=== PATIENT | female | born 1965 | race Caucasian/White ===

== ENCOUNTER 2019-07-23 13:59 | Emergency (ER) | payer OTHER, MEDICAID ==
[2019-07-23 15:28] LABS: ABSOLUTE BASOPHILS # (AUTO) 0.1 10^3/uL (0.0-0.2); ABSOLUTE EOSINOPHILS # (AUTO) 0.1 10^3/uL (0.0-0.6); ABSOLUTE LYMPHOCYTES (AUTO) 0.9 10^3/uL (0.5-4.7); ABSOLUTE MONOCYTES (AUTO) 0.9 10^3/uL (0.1-1.4); ABSOLUTE NEUT (AUTO) 6.9 10^3/uL (1.7-8.2); BASOPHILS % (AUTO) 0.6 % (0-2); EOSINOPHILS % (AUTO) 1.2 % (0-6); HEMATOCRIT 32.5 % (36.0-47.0); HEMOGLOBIN 11.2 g/dL (12.0-15.5); LYMPHOCYTES % (AUTO) 10.6 % (13-45); MEAN CORPUSCULAR HEMOGLOBIN 30.3 pg (27.0-33.4); MEAN CORPUSCULAR HGB CONC 34.4 g/dL (32.0-36.0); MEAN CORPUSCULAR VOLUME 88 fl (80-97); MONOCYTES % (AUTO) 9.9 % (3-13); PLATELET COUNT 245 10^3/uL (150-450); RED BLOOD COUNT 3.69 10^6/uL (3.72-5.28); RED CELL DISTRIBUTION WIDTH 13.9 % (11.5-14.0); SEGMENTED NEUTROPHILS % (AUTO) 77.7 % (42-78); TOTAL CELLS COUNTED % (AUTO) 100 %; WHITE BLOOD COUNT 8.9 10^3/uL (4.0-10.5)
[2019-07-23 15:37] LABS: ALBUMIN 3.5 g/dL (3.5-5.0); ALKALINE PHOSPHATASE 95 U/L (38-126); ANION GAP 7 (5-19); ASPARTATE AMINO TRANSFERASE 24 U/L (14-36); BILIRUBIN,TOTAL 0.9 mg/dL (0.2-1.3); BLOOD UREA NITROGEN 13 mg/dL (7-20); CALCIUM 8.7 mg/dL (8.4-10.2); CARBON DIOXIDE 25 mmol/L (22-30); CHLORIDE 106 mmol/L (98-107); GLUCOSE 106 mg/dL (75-110); POTASSIUM 4.2 mmol/L (3.6-5.0); TOTAL PROTEIN 6.5 g/dL (6.3-8.2)
[2019-07-23 16:02] LABS: APPEARANCE,URINE CLEAR; BILIRUBIN,URINE NEGATIVE (NEGATIVE); COLOR,URINE AMBER; GLUCOSE, URINE NEGATIVE (NEGATIVE); KETONES,URINE NEGATIVE (NEGATIVE); LEUKOCYTE ESTERASE,URINE NEGATIVE (NEGATIVE); NITRITE,URINE NEGATIVE (NEGATIVE); PROTEIN,URINE 100 mg/dL (NEGATIVE); URINE SPECIFIC GRAVITY 1.023
--- NOTE | 2019-07-23 16:22 | RADIOLOGY REPORT (SQ) ---
EXAM DESCRIPTION: CHEST SINGLE VIEW IMAGES COMPLETED DATE/TIME: 07/23/2019 3:00 pm REASON FOR STUDY: htn COMPARISON: None. EXAM PARAMETERS: NUMBER OF VIEWS: One view. TECHNIQUE: Single frontal radiographic view of the chest acquired. RADIATION DOSE: NA LIMITATIONS: None. FINDINGS: LUNGS AND PLEURA: Lungs are hyperinflated. Spiculated masslike opacity in the left upper lobe with associated pleural thickening. No consolidation or pleural effusion. No pneumothorax. MEDIASTINUM AND HILAR STRUCTURES: No masses. Contour normal. HEART AND VASCULAR STRUCTURES: Heart normal in size. Normal vasculature. BONES: No acute findings. HARDWARE: Left infraclavicular AICD with intact lead wires. OTHER: No other significant finding. IMPRESSION: 1. Spiculated mass with associated pleural thickening in the left upper lobe adjacent to the mediasti num suspicious for neoplasm. Further evaluation with contrast-enhanced CT of the chest is recommende d. 2. Hyperinflated lungs which can be seen with obstructive lung disease. 3. Moderate cardiomegaly. TECHNICAL DOCUMENTATION: JOB ID: [id number] [employer]- All Rights Reserved Reading location - IP/workstation name: [email or web address]
--- NOTE | 2019-07-23 19:16 | RADIOLOGY REPORT (SQ) ---
EXAM DESCRIPTION: CT CHEST WITH IMAGES COMPLETED DATE/TIME: 07/23/2019 5:56 pm REASON FOR STUDY: left chest mass COMPARISON: Chest radiograph same date TECHNIQUE: CT scan of the chest performed using helical scanning technique with dynamic intravenous contrast injection. Images reviewed with lung, soft tissue and bone windows. Reconstructed coronal and sagittal MPR and MIP images reviewed. All images stored on PACS. All CT scanners at this facility use dose modulation, iterative reconstruction, and/or weight based d osing when appropriate to reduce radiation dose to as low as reasonably achievable (ALARA). [facility]: Dose Right [facility]: CareDose [facility]: Dose Right [facility]: Teradose 4D [facility]: Dekko CONTRAST TYPE AND DOSE: 79 mL Omnipaque 350- low osmolar. RENAL FUNCTION: GFR > 60. RADIATION DOSE: CT Rad equipment meets quality standard of care and radiation dose reduction techniq ues were employed. CTDIvol: 6.8 mGy. DLP: 258 mGy-cm. . LIMITATIONS: None. FINDINGS: LUNGS AND PLEURA: The trachea has normal caliber and appearance. There is bronchial wall thickening and masslike consolidation involving the left upper lobe and superior segment left lower l obe, with a somewhat linear edge along the mediastinum. There is a surgical suture at the left lung apex with associated left apical pleural thickening/scarring. Findings may represent post radiation change. Linear atelectasis and a subpleural nodularity in the right lung base with subpleural nodule measuring 1 cm (image 47). No pleural effusion or pneumothorax. Background moderate pulmonary emph ysema. HILAR AND MEDIASTINAL STRUCTURES: A prominent subcarinal lymph node measures 2.5 by 1.3 cm. No other mediastinal adenopathy. HEART AND VASCULAR STRUCTURES: There is moderate cardiomegaly with prominence of the left ventricle. No pericardial effusion. HARDWARE: Left infraclavicular pacemaker with intact lead wires. UPPER ABDOMEN: No significant findings. Limited exam. THYROID AND OTHER SOFT TISSUES: No masses. No adenopathy. BONES: No significant finding. OTHER: No other significant finding. IMPRESSION: 1. Masslike consolidation with relatively straight configuration of the lateral margin involving the left upper and superior segment of the left lower lobe. There is a surgical suture in the left lung apex with associated pleural thickening/scarring. Findings may represent postoperative and post radi ation change in the left lung. Clinical correlation for patient's history of prior lung cancer treat ment is recommended. Correlation with any previous imaging would be recommended to evaluate for stab ility. 2. Additional 1 cm noncalcified pulmonary nodule at the right lung base. This may represent rounded atelectasis or a true nodule. Correlation with any previous imaging recommended to evaluate stabilit y. If no previous imaging is available, a follow-up CT of the chest in 3 months or alternatively, a PET scan may provide additional information. 3. Background moderate pulmonary emphysema. 4. Prominent subcarinal lymph node is nonspecific and may be reactive. Correlation for stability. TECHNICAL DOCUMENTATION: JOB ID: [id number] Quality ID # [id number]: Final reports with documentation of one or more dose reduction techniques (e.g., Au tomated exposure control, adjustment of the mA and/or kV according to patient size, use of iterative reconstruction technique) 2010 [employer]- All Rights Reserved Reading location - IP/workstation name: [email or web address]
[2019-07-23] MEDS ORDERED: METHYLPREDNISOLONE INJ 125 MG/2 ML SDV IV ONE (19:52)
--- NOTE | 2019-07-23 19:57 | ER Document Report ---
Entered by SUJEY BRAUN SCRIBE 07/23/19 0737 Acting as scribe for:CELESTE SHEPPARD DO ED Respiratory Problem - General Stated Complaint: DIFFICULTY BREATHING/COUGHING/CHEST PAIN Time Seen by Provider: 07/23/19 14:29 Information source: Patient Notes: This 53 year old female patient presents to the emergency department today with shortness of breath. Patient states for the past x1 week she has had pain in her right lower teeth, right ear, and left back. Patient states she has a productive cough with sam sputum. Patient states she has been visiting her daughter for the past x1 month and is from [facility]. Patient denies any fever, but states her daughter has also been coughing. Patient reports nausea, vomiting, and denies diarrhea. Patient states she has a history of hypertension and congestive heart failure. - Related Data Allergies/Adverse Reactions: No Known Allergies Allergy (Unverified 07/23/19 14:57) Past Medical History - General Information source: Patient - Social History Smoking Status: Current Every Day Smoker Cigarette use (# per day): Yes Family History: Reviewed & Not Pertinent - Past Medical History Cardiac Medical History: Reports: Hx Congestive Heart Failure, Hx Hypertension Past Surgical History: Reports: Hx Coronary Stent Review of Systems - Review of Systems Constitutional: See HPI. denies: Fever EENT: See HPI, Ear pain - R, Mouth pain - R lower teeth Cardiovascular: No symptoms reported Respiratory: See HPI, Cough, Short of breath, Sputum - sam Gastrointestinal: See HPI, Nausea, Vomiting. denies: Diarrhea Genitourinary: No symptoms reported Female Genitourinary: No symptoms reported Musculoskeletal: See HPI, Back pain - L Skin: No symptoms reported Hematologic/Lymphatic: No symptoms reported Neurological/Psychological: No symptoms reported -: Yes All other systems reviewed and negative Physical Exam - Vital signs Vitals: Temp Resp BP Pulse Ox 99.8 F 19 159/107 H 97 07/23/19 14:19 07/23/19 14:19 07/23/19 14:19 07/23/19 14:19 - General General appearance: Appears well, Alert - HEENT Head: Normocephalic, Atraumatic Eyes: Normal Pupils: PERRL Mouth/Lips: Caries - Respiratory Respiratory status: No respiratory distress Chest status: Nontender Breath sounds: Other - Diminished bilaterally Chest palpation: Normal - Cardiovascular Rhythm: Regular Heart sounds: Normal auscultation Murmur: No - Abdominal Inspection: Normal - Soft Distension: No distension Bowel sounds: Normal Tenderness: Nontender - Extremities General upper extremity: Normal inspection. No: Edema General lower extremity: Normal inspection. No: Edema - Neurological Neuro grossly intact: Yes Cognition: Normal Orientation: AAOx4 - Psychological Associated symptoms: Normal affect, Normal mood - Skin Skin Temperature: Warm Skin Moisture: Dry Skin Color: Normal Course - Re-evaluation Re-evalutation: 07/23/19 19:47 MDM 53 year old with chronic lung disease and 8 years post stage 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 Discussed close follow up and need for follow up ct in 3 months and she expressed understanidng. - Vital Signs Vital signs: Temp Pulse Resp BP Pulse Ox 99.8 F 20 144/93 H 99 07/23/19 14:50 07/23/19 17:01 07/23/19 17:00 07/23/19 17:01 - Laboratory Result Diagrams: 07/23/19 14:32 07/23/19 14:32 Laboratory results interpreted by me: 07/23/19 07/23/19 14:32 15:28 RBC 3.69 L Hgb 11.2 L Hct 32.5 L Lymph % (Auto) 10.6 L Urine Protein 100 H Urine Urobilinogen 4.0 H - Diagnostic Test Radiology reviewed: Image reviewed, Reports reviewed - EKG Interpretation by Me EKG shows normal: Sinus rhythm Rate: Normal Rhythm: NSR - NSr NL Ferney [address] elevation or depression my interpretation. Discharge - Discharge Clinical Impression: Apical lung scarring Pneumonia Qualifiers: Pneumonia type: due to unspecified organism Laterality: left Lung location: upper lobe of lung Qualified Code(s): J18.9 - Pneumonia, unspecified organism Hypertension Qualifiers: Hypertension type: unspecified Qualified Code(s): I10 - Essential (primary) hypertension Condition: Good Disposition: HOME, SELF-CARE Instructions: Chronic Obstructive Lung Disease ([facility]), Pneumonia ([facility]) Additional Instructions: Rest, fluids, please return here for any problems or any concerns.Your blood pressure was a bit high and should be rechecked. You are reccomened to have a reperat cat scan of the chest in 3 months or a pet scan at that time. Finish the antibiotics and steriods and work on completely stopping smoking. Prescriptions: Amoxicillin/Potassium Clav [Augmentin 875-125 Tablet] 1 tab PO Q12 #20 tablet Prednisone 10 mg PO DAILY #21 tablet Forms: Smoking Cessation Education I personally performed the services described in the documentation, reviewed and edited the documentation which was dictated to the scribe in my presence, and it accurately records my words and actions.
[2019-07-23 21:31] VITALS: BP 151/79
--- NOTE | 2019-07-23 22:45 | EKG REPORT ---
SEVERITY:- ABNORMAL ECG - SINUS RHYTHM LEFT ATRIAL ABNORMALITY LVH WITH SECONDARY REPOLARIZATION ABNORMALITY : Confirmed by: Jeanne Giraldo MD 23-Jul-2019 22:44:11
== END 2019-07-23 21:29 | disposition home or self-care (01) ==
LOC: ER 13:59
DX: J18.9 Pneumonia, unspecified organism (principal); J43.9 Emphysema, unspecified; J98.4 Other disorders of lung; Z85.118 Personal history of other malignant neoplasm of bronchus and lung; R06.02 Shortness of breath; K08.89 Other specified disorders of teeth and supporting structures; H92.01 Otalgia, right ear; M54.9 Dorsalgia, unspecified; R05 Cough; R11.2 Nausea with vomiting, unspecified; I10 Essential (primary) hypertension; F17.210 Nicotine dependence, cigarettes, uncomplicated
CPT/HCPCS: 93005; 99285; 96374; 36415; 83605; 83690; 83735; 85025; 80053; 81001; 84484; 71045; 71260; 93010; J2930